=== PATIENT | male | born 1975 | race Caucasian/White ===

== ENCOUNTER 2017-03-06 00:46 | Inpatient (IN) | payer MEDICARE, OTHER ==
[~2017-03-06] VITALS: Ht 188 cm; Wt 113.4 kg
[~2017-03-06 00:46] MED LIST: CIPRO500 MG PO; FLAGYL500 MG PO; LISINOPRIL10 MG PO; MORPHINE SULFAT15 MG PO; OXYCODONE HCL5 MG PO
[2017-03-06 03:27] LABS: HEMOGLOBIN 13.1 gm/dl (14.0-17.5); RED BLOOD COUNT 4.52 M/UL (4.20-5.50); WHITE BLOOD COUNT 7.3 K/UL (4.5-11.0)
[2017-03-06 03:46] LABS: BUN/CREATININE RATIO 10 (0-10)
[2017-03-06] MEDS ORDERED: DURAGESIC 25 MCG1 EA TOP (08:34)
[2017-03-07 03:21] LABS: ADENOVIRUS F 40/41 Not Detected (Negative); ASTROVIRUS Not Detected (Negative); CAMPYLOBACTER Not Detected (Negative); CLOSTRIDIUM DIFFICILE TOX A/B Not Detected (Negative); CRYPTOSPORIDIUM Not Detected (Negative); E.COLI 0157 Not Detected (Negative); ENTAMOEBA HISTOLYTICA Not Detected (Negative); ENTEROAGGREGATIVE E.COLI (EAEC Not Detected (Negative); ENTEROPATHOGENIC E.COLI (EPEC) Not Detected (Negative); ENTEROTOXIGENIC E.COLI (ETEC) Not Detected (Negative); GIARDIA LAMBLIA Not Detected (Negative); NOROVIRUS GI/GII Not Detected (Negative); PLESIOMONAS SHIGELLOIDES Not Detected (Negative); ROTOVIRUS A Not Detected (Negative); SALMONELLA Not Detected (Negative); SAPOVIRUS Not Detected (Negative); SHIG/ENTEROINVAS.ECOLI (EIEC) Not Detected (Negative); SHIGA-LIK TOX.PRO.E.COLI (STEC Not Detected (Negative); VIBRIO Not Detected (Negative); VIBRIO CHOLERAE Not Detected (Negative); YERSINIA ENTEROCOLITICA Not Detected (Negative)
[2017-03-07 06:36] LABS: HEMOGLOBIN 12.4 gm/dl (14.0-17.5); RED BLOOD COUNT 4.33 M/UL (4.20-5.50)
[2017-03-07 06:58] LABS: BUN/CREATININE RATIO 6 (0-10)
[2017-03-07] MEDS ORDERED: LEVAQUIN500 MG PO (16:37)
[2017-03-07] MEDS ORDERED: FLAGYL500 MG PO (16:38)
== END 2017-03-07 17:52 | disposition home or self-care (01) | DRG 386 ==
LOC: ER1 00:46 → M/S 05:46 → ZEROF 05:46 → M/S 07:46
PROVIDERS: Internal Medicine; Student in an Organized Health Care Education/Training Program; ADMIT Internal Medicine
DX: K50.012 Crohn's disease of small intestine with intestinal obstruction (principal); I10 Essential (primary) hypertension; E78.5 Hyperlipidemia, unspecified; Z79.891 Long term (current) use of opiate analgesic; Z79.899 Other long term (current) drug therapy; Z90.49 Acquired absence of other specified parts of digestive tract; Z98.890 Other specified postprocedural states; Z83.3 Family history of diabetes mellitus
CPT/HCPCS: 36415; 80048; 80053; 81001; 83605; 83690; 83735; 85025; 87507; 89055; 96374; 96375; 99285; C9113; J1650; J1956; J2270; J2405; J7030; J7050; Q9962